=== PATIENT | female | born 1930 | race Caucasian/White ===

== ENCOUNTER 2016-10-02 11:09 | Inpatient (IN) | payer MEDICARE, BC ==
[~2016-10-02] VITALS: Ht 162.6 cm; Wt 42.0 kg
[2016-10-02] MEDS ORDERED: ONDANSETRON HCL 4 MG/2 ML VIAL IVP ONE (11:45)
[2016-10-02] MEDS ORDERED: MORPHINE SULFATE 4 MG/ML SYRINGE IVP ONE (11:45)
[2016-10-02] MEDS ORDERED: KETAMINE HCL 50 MG/ML 10 ML VIAL IVP ONE (12:00)
[2016-10-02] MEDS ORDERED: FentaNYL CITRATE-PF 100 MCG/2 ML VIAL IVP ONE ×2 (12:00→12:45)
[2016-10-02] MEDS ORDERED: MIDAZOLAM HCL 2 MG/2 ML VIAL IVP ONE (12:00)
[2016-10-02 12:14] LABS: BASOPHILS # (AUTO) 0.01 K/uL (0.00-0.20); BASOPHILS % (AUTO) 0.1 % (0.0-2.0); EOSINOPHILS % (AUTO) 0.02 % (1.0-6.0); HEMATOCRIT 44.3 % (36-46); HEMOGLOBIN 14.8 g/dL (12.0-16.0); LYMPHOCYTES # (AUTO) 0.6 K/uL (1.0-4.8); LYMPHOCYTES % (AUTO) 5.4 % (22.0-44.0); MEAN CORPUSCULAR HEMOGLOBIN 32.9 pg (26.0-34.0); MEAN CORPUSCULAR HGB CONC 33.3 G/dL (31.0-37.0); MEAN CORPUSCULAR VOLUME 99 fL (80-100); MONOCYTES % (AUTO) 9.4 % (2.0-9.0); NEUTROPHILS # (AUTO) 9.4 K/uL (1.8-7.7); NEUTROPHILS % (AUTO) 85.1 % (40.0-70.0); PLATELET COUNT (AUTO) 144 K/uL (150-450); RED BLOOD CELL COUNT(AUTO) 4.48 MIL/uL (4.00-5.20); RED CELL DISTRIBUTION WIDTH 14.3 % (11.5-14.5)
[2016-10-02 12:22] LABS: CALCIUM, TOTAL 9.3 mg/dL (8.8-10.5); CREATININE 0.97 mg/dL (0.60-1.30); POTASSIUM 4.5 mmol/L (3.5-5.1)
[2016-10-02 12:28] LABS: ALBUMIN 3.4 g/dL (3.4-5.0); BILIRUBIN,TOTAL 0.9 mg/dL (0.1-1.0); INR 0.9 (0.9-1.1); PROTHROMBIN TIME 9.7 SEC (9.4-11.6); TOTAL PROTEIN, SERUM 7.2 g/dL (6.4-8.2)
[2016-10-02 12:31] LABS: RBC MORPHOLOGY COMMENT NORMAL RBC MORPH
[2016-10-02 12:34] LABS: APPEARANCE,URINE CLOUDY (CLEAR); GLUCOSE, URINE (UA) NEGATIVE (NEGATIVE); KETONES,URINE NEGATIVE (NEGATIVE); LEUKOCYTE ESTERASE ,URINE NEGATIVE (NEGATIVE); OCCULT BLOOD,URINE NEGATIVE (NEGATIVE); PROTEIN,URINE NEGATIVE (NEGATIVE)
[2016-10-02 12:35] LABS: ADD UA MICROSCOPIC YES
[2016-10-02 12:37] LABS: RBC,URINE None Seen /HPF (0-2); SQUAMOUS EPITHELIAL CELL,UR Few /LPF (None Seen)
[2016-10-02] MEDS ORDERED: HYDROmorphone 2 MG/ML SYRINGE IVP ONE ×2 (14:00→15:30)
[2016-10-02] MEDS ORDERED: ONDANSETRON HCL 4 MG/2 ML VIAL IVP PRN ×3 (15:30→23:30)
[2016-10-02] MEDS ORDERED: ACETAMINOPHEN 325 MG TABLET PO PRN (15:30)
[2016-10-02] MEDS ORDERED: HYDROmorphone 2 MG/ML SYRINGE IVP PRN (15:30)
[2016-10-02] MEDS ORDERED: SODIUM CHLORIDE 0.9% 1,000 ML IV ONE (15:30)
[2016-10-02] MEDS ORDERED: 0.9% SODIUM CHLORIDE 10 ML SYRINGE IVP PRN ×2 (15:30→23:15)
[2016-10-02] MEDS ORDERED: SODIUM CL IRRIG SOLN BAG 3,000 ML IRRIG ONE (17:28)
[2016-10-02 20:25] VITALS: BP 154/96
[2016-10-02] MEDS ORDERED: POTASSIUM CHL 20 MEQ/0.9% NS 1,000 ML IV SCH (23:00)
[2016-10-02 23:15] VITALS: BP 165/95
[2016-10-02] MEDS ORDERED: OxyCODONE HCL/ACETAMINOPHEN 5-325 MG TABLET PO PRN ×2 (23:15)
[2016-10-02] MEDS: HYDROmorphone 2 MG/ML SYRINGE IVP PRN (23:36)
[2016-10-03 05:05] VITALS: BP 158/71
[2016-10-03] MEDS: HYDROmorphone 2 MG/ML SYRINGE IVP PRN ×2 (05:20→15:50)
[2016-10-03] MEDS ORDERED: RINGERS SOLUTION,LACTATED 1,000 ML IV ONE ×2 (06:40→08:37)
[2016-10-03 06:46] LABS: ANION GAP 3 mmol/L (8-16); CALCIUM, TOTAL 8.5 mg/dL (8.8-10.5); CARBON DIOXIDE 35 mmol/L (22-29); CHLORIDE 97 mmol/L (98-107); CHOL/HDL RATIO 1.5 (3.9-5.7); CREATININE 0.84 mg/dL (0.60-1.30); GLOMERULAR FILTR. RATE CALC > 60 mL/min (>60); POTASSIUM 4.3 mmol/L (3.5-5.1); SODIUM SERUM 135 mmol/L (136-145); UREA NITROGEN, BLOOD 19 mg/dL (7-18)
[2016-10-03 06:53] LABS: BASOPHILS # (AUTO) 0.01 K/uL (0.00-0.20); BASOPHILS % (AUTO) 0.2 % (0.0-2.0); EOSINOPHILS # (AUTO) 0.07 K/uL (0.00-0.70); EOSINOPHILS % (AUTO) 1.04 % (1.0-6.0); HEMOGLOBIN 12.6 g/dL (12.0-16.0); LYMPHOCYTES # (AUTO) 0.7 K/uL (1.0-4.8); LYMPHOCYTES % (AUTO) 10.4 % (22.0-44.0); MEAN CORPUSCULAR HEMOGLOBIN 33.4 pg (26.0-34.0); MEAN CORPUSCULAR HGB CONC 34.1 G/dL (31.0-37.0); MEAN CORPUSCULAR VOLUME 98 fL (80-100); MONOCYTES # (AUTO) 0.9 K/uL (0.1-1.0); MONOCYTES % (AUTO) 12.6 % (2.0-9.0); NEUTROPHILS # (AUTO) 5.2 K/uL (1.8-7.7); NEUTROPHILS % (AUTO) 75.9 % (40.0-70.0); PLATELET COUNT (AUTO) 120 K/uL (150-450); RED BLOOD CELL COUNT(AUTO) 3.78 MIL/uL (4.00-5.20); RED CELL DISTRIBUTION WIDTH 14.1 % (11.5-14.5); WHITE BLOOD COUNT (AUTO) 6.8 K/uL (4.5-11.0)
[2016-10-03] MEDS ORDERED: FentaNYL CITRATE-PF 100 MCG/2 ML VIAL IVP PRN (08:45)
[2016-10-03] MEDS ORDERED: HYDROmorphone 2 MG/ML SYRINGE IVP PRN (08:45)
[2016-10-03] MEDS ORDERED: MEPERIDINE-PF 25 MG/ML SYRINGE IVP PRN (08:45)
[2016-10-03] MEDS: BUPIVACAINE LIPOSOME/PF 1.3%-13.3MG/ML SUSPENSION 20 ML VIAL INJ ONE ×2 (08:52→09:00)
[2016-10-03] MEDS: BUPIVACAINE HCL/PF 0.25% 30 ML VIAL ONE ×2 (08:52→09:00)
[2016-10-03] MEDS ORDERED: HYDROCODONE/ACETAMINOPHEN 10-325 MG TABLET PO PRN (10:00)
[2016-10-03] MEDS ORDERED: DOCUSATE SODIUM 250 MG CAPSULE PO PRN (10:00)
[2016-10-03] MEDS ORDERED: BISACODYL 10 MG RECTAL RECTAL SUPPOSITORY PR PRN (10:00)
[2016-10-03] MEDS ORDERED: ACETAMINOPHEN 325 MG TABLET PO PRN (10:00)
[2016-10-03 11:17] VITALS: BP 146/77
[2016-10-03] MEDS: DOCUSATE SODIUM 100 MG CAPSULE PO SCH ×2 (11:56→21:21)
[2016-10-03] MEDS: PANTOPRAZOLE SODIUM 40 MG/VIAL IVP SCH (11:56)
[2016-10-03] MEDS: HEPARIN SODIUM,PORCINE 5,000 UNITS/ML VIAL SQ SCH ×2 (11:57→21:21)
[2016-10-03] MEDS: POTASSIUM CHL 20 MEQ/D5-NS 1,000 ML IV SCH (11:59)
[2016-10-03] MEDS ORDERED: LIDOCAINE HCL/PF 2% 5 ML VIAL INJ ONE (12:00)
[2016-10-03] MEDS ORDERED: NEOSTIGMINE METHYLSULFATE 1 MG/ML 10 ML VIAL IVP ONE (12:00)
[2016-10-03] MEDS ORDERED: ROCURONIUM BROMIDE 10 MG/ML 5 ML VIAL IVP ONE (12:00)
[2016-10-03] MEDS ORDERED: ONDANSETRON HCL 4 MG/2 ML VIAL IVP ONE (12:00)
[2016-10-03] MEDS ORDERED: GLYCOPYRROLATE 0.2 MG/ML VIAL IVP ONE (12:00)
[2016-10-03 15:48] VITALS: BP 125/67
[2016-10-03 20:08] VITALS: BP 135/72
[2016-10-04 00:02] VITALS: BP 143/83
[2016-10-04] MEDS: HYDROmorphone 2 MG/ML SYRINGE IVP PRN ×2 (01:12→05:23)
[2016-10-04 04:30] VITALS: BP 154/78
[2016-10-04 07:30] VITALS: BP 149/96
[2016-10-04] MEDS: OXYGEN THERAPY IH SCH ×2 (08:00→19:51)
[2016-10-04] MEDS: DOCUSATE SODIUM 100 MG CAPSULE PO SCH ×2 (09:40→19:51)
[2016-10-04] MEDS: PANTOPRAZOLE SODIUM 40 MG/VIAL IVP SCH (09:40)
[2016-10-04] MEDS: HEPARIN SODIUM,PORCINE 5,000 UNITS/ML VIAL SQ SCH ×2 (09:41→19:50)
[2016-10-04 11:30] VITALS: BP 139/85
[2016-10-04] MEDS: CHOLECALCIFEROL (VIT D3) 2,000 UNITS TABLET PO SCH (13:32)
[2016-10-04 15:30] VITALS: BP 128/86
[2016-10-04] MEDS: ASPIRIN 325 MG TABLET PO SCH (19:34)
[2016-10-04 19:40] VITALS: BP 153/86
[2016-10-04] MEDS: HYDROCODONE/ACETAMINOPHEN 10-325 MG TABLET PO PRN (19:51)
[2016-10-04] MEDS: POTASSIUM CHL 20 MEQ/D5-NS 1,000 ML IV SCH (19:52)
[2016-10-05 00:17] VITALS: BP 141/93
[2016-10-05 05:32] VITALS: BP 145/99
[2016-10-05 06:56] LABS: ANION GAP 5 mmol/L (8-16); CARBON DIOXIDE 31 mmol/L (22-29); CHLORIDE 96 mmol/L (98-107); CREATINE KINASE, TOTAL 37 U/L (26-192); GLOMERULAR FILTR. RATE CALC > 60 mL/min (>60); POTASSIUM 3.5 mmol/L (3.5-5.1); SODIUM SERUM 132 mmol/L (136-145); UREA NITROGEN, BLOOD 11 mg/dL (7-18)
[2016-10-05 08:00] VITALS: BP 145/95
[2016-10-05 08:13] LABS: B-TYPE NATRIURETIC PEPTIDE 270 pg/mL (0-100)
[2016-10-05] MEDS: ASPIRIN 325 MG TABLET PO SCH (09:02)
[2016-10-05] MEDS: HYDROCODONE/ACETAMINOPHEN 10-325 MG TABLET PO PRN (09:03)
[2016-10-05] MEDS: CHOLECALCIFEROL (VIT D3) 2,000 UNITS TABLET PO SCH (09:04)
[2016-10-05] MEDS: HEPARIN SODIUM,PORCINE 5,000 UNITS/ML VIAL SQ SCH (09:04)
[2016-10-05] MEDS: PANTOPRAZOLE SODIUM 40 MG/VIAL IVP SCH (09:04)
[2016-10-05] MEDS: DOCUSATE SODIUM 100 MG CAPSULE PO SCH (09:04)
[2016-10-05] MEDS ORDERED: MAGNESIUM SULFATE 1 GM in DEXTROSE 5%-WATER 50 ML IV ONE (10:00)
[2016-10-05] MEDS ORDERED: MAGNESIUM OXIDE 400 MG TABLET PO ONE (11:45)
[2016-10-05] MEDS ORDERED: POTASSIUM CHLORIDE 20 MEQ ER TABLET PO ONE (11:45)
[2016-10-05 12:00] VITALS: BP 115/71
[2016-10-05] MEDS ORDERED: CIPROFLOXACIN HCL 250 MG TABLET PO SCH (12:45)
[2016-10-06] MEDS ORDERED: PANTOPRAZOLE SODIUM 40 MG DR TABLET PO SCH (09:00)
== END 2016-10-05 15:01 | DRG 470 ==
LOC: EMS 11:17 → 6N 19:30 → 4E 10-04 07:45
PROVIDERS: ADMIT Internal Medicine; ATTEND Internal Medicine
PROC: 0SRR0J9 Replacement of Right Hip Joint, Femoral Surface with Synthetic Substitute, Cemented, Open Approach (ICD-10-PCS; principal; 2016-10-03 08:25)
DX: S72.011A Unspecified intracapsular fracture of right femur, initial encounter for closed fracture (principal); Z68.1 Body mass index [BMI] 19.9 or less, adult; N39.0 Urinary tract infection, site not specified; R64 Cachexia; F03.90 Unspecified dementia, unspecified severity, without behavioral disturbance, psychotic disturbance, mood disturbance, and anxiety; J44.9 Chronic obstructive pulmonary disease, unspecified; I10 Essential (primary) hypertension; B96.20 Unspecified Escherichia coli [E. coli] as the cause of diseases classified elsewhere; E55.9 Vitamin D deficiency, unspecified; F17.210 Nicotine dependence, cigarettes, uncomplicated; Z71.6 Tobacco abuse counseling; Z85.3 Personal history of malignant neoplasm of breast; W18.39XA Other fall on same level, initial encounter; Y93.89 Activity, other specified; Y92.198 Other place in other specified residential institution as the place of occurrence of the external cause; Y99.8 Other external cause status
CPT/HCPCS: 51702; 72170; 73502; 82306; 83735; 86850; 86900; 86901; 86920; 87081; 87086; 88300; 93005; 93306; 96361; 96374; 96375; 96376; 97162; 97166; 99285; 99406; C9113; C9290; G0238; J1170; J1644; J2250; J2270; J2405; J3010; J3475; J3480; J3490; J7030; J7060; J7120

== ENCOUNTER → 2017-01-01 | Outpatient (CLI) | payer MEDICARE, BC | END | disposition home or self-care (01) | LOC: RADPV 13:27 | PROVIDERS: ATTEND Internal Medicine Geriatric Medicine | DX: M25.511 Pain in right shoulder (principal) ==

== ENCOUNTER → 2017-01-15 | Outpatient (CLI) | payer MEDICARE, BC | END | disposition home or self-care (01) | LOC: RADPV 09:55 | PROVIDERS: ATTEND Internal Medicine Cardiovascular Disease | DX: I35.8 Other nonrheumatic aortic valve disorders (principal); I50.1 Left ventricular failure, unspecified; I73.9 Peripheral vascular disease, unspecified | CPT/HCPCS: 93306; 93970 ==